=== PATIENT | female | born 1985 | race American Indian/Alaskan Native ===

== ENCOUNTER 2019-06-05 20:05 | Emergency (ER) | payer SELFPAY ==
--- NOTE | 2019-06-05 21:31 | Emergency Department Report ---
Blank Doc - Documentation Documentation: 33-year-old female that presents with midsternum chest pain and some SOB. Sta tia has headache but denies thunderclap headache or worst headache. Stated has chronic headaches. Denies any thunderclap headace. No facial drooping or one sided weakness. \ This initial assessment/diagnostic orders/clinical plan/treatment(s) is/are subject to change based on patient's health status, clinical progression and re- assessment by fellow clinical providers in the ED. Further treatment and workup at subsequent clinical providers discretion. Patient/guardians urged not to elope from the ED as their condition may be serious if not clinically assessed and managed. Initial orders include: 1- Patient sent to [facility] for further evaluation and treatment 2- EKG 3- CXR
[2019-06-05 22:37] LABS: Bilirubin,Urine NEG (Negative); Blood,Urine NEG (Negative); Color,Urine Yellow (Yellow); Mucus,Urine FEW /HPF; Protein,Urine <15 mg/dL mg/dL (Negative)
[2019-06-05 22:38] LABS: HCG Qualitative,Urine Negative (Negative)
--- NOTE | 2019-06-05 23:46 | XRay Report ---
CHEST 2 VIEWS INDICATION / CLINICAL INFORMATION: Chest pain. COMPARISON: None available. FINDINGS: SUPPORT DEVICES: None. HEART / MEDIASTINUM: No significant abnormality. LUNGS / PLEURA: No significant pulmonary or pleural abnormality. No pneumothorax. ADDITIONAL FINDINGS: No significant additional findings. IMPRESSION: 1. No acute findings. Signer Name: Alfredito Renee MD Signed: 06/05/2019 11:42 PM Workstation Name: [id number]
[2019-06-06] MEDS ORDERED: ASPIRIN EC 81 MG TAB PO ONE (00:08)
[2019-06-06 00:43] LABS: Basophils # (Auto) 0.1 K/mm3 (0.0-0.1); Basophils % (Auto) 0.7 % (0.0-1.8); Eosinophils # (Auto) 0.1 K/mm3 (0.0-0.4); Eosinophils % (Auto) 0.9 % (0.0-4.3); Hematocrit 34.4 % (30.3-42.9); Hemoglobin 11.6 gm/dl (10.1-14.3); Lymphocytes # (Auto) 2.5 K/mm3 (1.2-5.4); Mean Corpuscular HGB Conc 34 % (30-34); Mean Corpuscular Volume 85 fl (79-97); Monocytes # (Auto) 0.6 K/mm3 (0.0-0.8); Monocytes % (Auto) 6.6 % (0.0-7.3); Platelet Count 264 K/mm3 (140-440); Red Blood Count 4.03 M/mm3 (3.65-5.03); Red Cell Distribution Width 13.8 % (13.2-15.2)
[2019-06-06 01:23] LABS: Alanine Aminotransferase 28 units/L (7-56); Albumin 4.4 g/dL (3.9-5); BUN/Creatinine Ratio 14; Blood Urea Nitrogen 10 mg/dL (7-17); Calcium 9.4 mg/dL (8.4-10.2); Hemolysis Index 4
--- NOTE | 2019-06-06 02:01 | Emergency Department Report ---
ED Chest Pain HPI - General Chief Complaint: Chest Pain Stated Complaint: CP/SOB Time Seen by Provider: 06/05/19 21:30 Source: patient Mode of arrival: Ambulatory Limitations: No Limitations - History of Present Illness Initial Comments: Patient is a 33-year-old -Citizen Of [place] female with no past medical history who presents to the ED with a complaint of acute onset persistent constant substernal anterior chest wall pain for the last 7 hours. Patient states that the pain is constant and is worse with inhalation. Patient denies shortness of breath, easiness, fever, chills, cough, diaphoresis, neck pain, headache, palpitations, abdominal pain or nausea and vomiting or syncope. Patient states that she is on control. MD Complaint: chest pain -: Sudden, hour(s) (7) Onset: during rest, during exertion Pain Location: substernal Pain Radiation: none Severity: moderate Severity scale (0 -10): 5 Quality: aching, sharp Consistency: constant Improves With: nothing Worsens With: inspiration, palpation re: denies: nausea, vomting, diaphoresis, dyspnea, sense of impending doom, other Other Symptoms: denies: cough, fever, syncope, rash, acid taste in mouth, leg swelling, palpitations, burping Treatments Prior to Arrival: none Aspirin use within the Past 7 Days: (0) No - Related Data On Oral Contraceptives: Yes Previous Rx's Medication Instructions Recorded Last Taken Type Ibuprofen [Motrin] 600 mg PO Q8H PRN #24 tablet 06/06/19 Unknown Rx Sulfamethoxazole/Trimethoprim 1 each PO Q12H #20 tablet 06/06/19 Unknown Rx [Bactrim DS TAB] hydrOXYzine PAMOATE [Vistaril] 25 mg PO Q6HR PRN #30 capsule 06/06/19 Unknown Rx Allergies Allergy/AdvReac Type Severity Reaction Status Date / Time No Known Allergies Allergy Verified 06/06/19 00:13 Heart Score - HEART Score History: Slightly suspicious EKG: Normal Age: < 45 Risk factors: No known risk factors Troponin: < normal limit HEART Score: 0 - Critical Actions Critical Actions: 0-3 pts:0.9-1.7%risk of adverse cardiac event.Candidate for discharge ED Review of Systems ROS: Stated complaint: CP/SOB Other details as noted in HPI Comment: All other systems reviewed and negative Constitutional: no symptoms reported. denies: chills, diaphoresis, fever, malaise, weakness Eyes: denies: eye pain, eye discharge, vision change ENT: denies: ear pain, throat pain, dental pain, hearing loss, congestion Respiratory: denies: cough, orthopnea, shortness of breath, SOB with exertion, SOB at rest, wheezing Cardiovascular: chest pain (anterior substernal chest pain). denies: palpi tations, dyspnea on exertion, edema, syncope, paroxysmal nocturnal dyspnea Endocrine: no symptoms reported. denies: excessive sweating, flushing Gastrointestinal: denies: abdominal pain, nausea, vomiting, diarrhea Genitourinary: denies: urgency, dysuria, discharge Musculoskeletal: denies: back pain, joint swelling, arthralgia Skin: denies: rash, lesions Neurological: denies: headache, weakness, paresthesias Psychiatric: denies: anxiety, depression Hematological/Lymphatic: denies: easy bleeding, easy bruising ED Past Medical Hx - Past Medical History Previous Medical History?: No - Surgical History Additional Surgical History: c sect x2, cyst removal - Social History Smoking Status: Never Smoker Substance Use Type: None - Medications Home Medications: Home Medications Medication Instructions Recorded Confirmed Last Taken Type Ibuprofen [Motrin] 600 mg PO Q8H PRN #24 tablet 06/06/19 Unknown Rx Sulfamethoxazole/Trimethoprim 1 each PO Q12H #20 tablet 06/06/19 Unknown Rx [Bactrim DS TAB] hydrOXYzine PAMOATE [Vistaril] 25 mg PO Q6HR PRN #30 capsule 06/06/19 Unknown Rx ED Physical Exam - General Limitations: No Limitations General appearance: alert, in no apparent distress - Head Head exam: Present: atraumatic, normocephalic, normal inspection - Eye Eye exam: Present: normal appearance, PERRL, EOMI Pupils: Present: normal accommodation - ENT ENT exam: Present: normal exam, normal orophraynx, mucous membranes moist, TM's normal bilaterally, normal external ear exam - Neck Neck exam: Present: normal inspection, full ROM. Absent: tenderness, meningismus, lymphadenopathy, thyromegaly - Respiratory Respiratory exam: Present: normal lung sounds bilaterally, chest wall tenderness. Absent: respiratory distress, wheezes, rales, rhonchi, stridor, accessory muscle use - Cardiovascular Cardiovascular Exam: Present: regular rate, normal rhythm, normal heart sounds. Absent: systolic murmur, diastolic murmur, rubs, gallop - GI/Abdominal GI/Abdominal exam: Present: soft, normal bowel sounds. Absent: tenderness, guarding, rebound, hyperactive bowel sounds, organomegaly, mass - Extremities Exam Extremities exam: Present: normal inspection, full ROM, normal capillary refill - Back Exam Back exam: Present: normal inspection, full ROM. Absent: tenderness, muscle spasm, paraspinal tenderness, vertebral tenderness - Neurological Exam Neurological exam: Present: alert, oriented X3, CN II-XII intact, normal gait, reflexes normal - Psychiatric Psychiatric exam: Present: normal affect, normal mood - Skin Skin exam: Present: warm, dry, intact, normal color. Absent: rash ED Course Vital Signs 06/05/19 06/06/19 21:30 02:10 Temperature 97.4 F L 97.7 F Pulse Rate 79 73 Respiratory 19 18 Rate Blood Pressure 116/76 Blood Pressure 99/59 [Left] O2 Sat by Pulse 98 99 Oximetry MAMIE score - Mamie Score Age > 65: (0) No Aspirin use within the Past 7 Days: (0) No 3 or more CAD Risk Factors: (0) No 2 or more Angina events in past 24 hrs: (0) No Known CAD with more than 50% Stenosis: (0) No Elevated Cardiac Markers: (0) No ST Deviation Greater than 0.5mm: (0) No MAMIE Score: 0 ED Medical Decision Making - Lab Data Result diagrams: 06/06/19 00:33 06/06/19 00:33 - EKG Data Interpretation: normal EKG - Radiology Data Radiology results: report reviewed, image reviewed Chest x-ray shows no acute cardiopulmonary abnormalities or pneumonitis. - Medical Decision Making This is a 33-year-old AA female with no past medical history unknown cardiac risk factors who presented to the ED complaining of acute onset persistent substernal anterior chest wall pain for 7 hours. Patient is alert and oriented 3 and is not in distress with normal vital signs. Chest x-ray shows no acute cardiopulmonary abnormalities or pneumonitis. Lab test results including d- dimer level were reviewed and all nonactionable. The patient was treated in the ED with aspirin and on reevaluation, patient's pain is well-controlled medication. Patient's Heart score is 0 and the MAMIE score is also 0. Patient was discharged home with medications for pain and was advised to follow-up with her primary care physician in 7 to 10 days for reevaluation or return to the ED immediately if symptoms get worse. - Differential Diagnosis costochondritis; chest pain; ACS; GERD; Anxiety Critical care attestation.: If time is entered above; I have spent that time in minutes in the direct care of this critically ill patient, excluding procedure time. ED Disposition Clinical Impression: Pleuritic chest pain, Acute costochondritis, Anxiety as acute reaction to exceptional stress, Acute urinary tract infection Disposition: TO HOME OR SELFCARE Is pt being admited?: No Does the pt Need Aspirin: No Condition: Stable Instructions: Chest Pain (ED), Urinary Tract Infection in Women (ED), Costochondritis (ED) Additional Instructions: Take medications with food, drink plenty of fluids and follow-up with your primary care physician in 7-10 days for reevaluation. Return to the ED immediately if symptoms get worse. Prescriptions: Sulfamethoxazole/Trimethoprim [Bactrim DS TAB] 1 each PO Q12H #20 tablet Ibuprofen [Motrin] 600 mg PO Q8H PRN #24 tablet PRN Reason: Pain hydrOXYzine PAMOATE [Vistaril] 25 mg PO Q6HR PRN #30 capsule PRN Reason: Anxiety Referrals: [facility] [Outside] - 3-5 Days Forms: Work/School Release Form(ED) Time of Disposition: 01:58 Print Language: GRENADIAN
[2019-06-06] MEDS ORDERED: predniSONE 20 MG TAB PO ONE (02:07)
[2019-06-06] MEDS ORDERED: diphenhydrAMINE 25 MG CAP PO ONE (02:07)
[2019-06-06 02:11] VITALS: BP 99/59
== END 2019-06-06 02:29 | disposition home or self-care (01) ==
LOC: ED 20:05
DX: M94.0 Chondrocostal junction syndrome [Tietze] (principal); F41.9 Anxiety disorder, unspecified; N39.0 Urinary tract infection, site not specified; Z98.890 Other specified postprocedural states
CPT/HCPCS: 36415; 71046; 80053; 81001; 81025; 84484; 85025; 85379; 87086; 93005; 93010; 99284; J7512

== ENCOUNTER 2019-10-03 08:31 | Emergency (ER) | payer OTHER ==
[2019-10-03] MEDS ORDERED: IBUPROFEN 600 MG TAB PO ONE (10:04)
[2019-10-03 11:20] LABS: HCG Qualitative,Urine Negative (Negative)
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
== END 2019-10-03 12:25 | disposition home or self-care (01) ==
LOC: ED 08:31
DX: S39.012A Strain of muscle, fascia and tendon of lower back, initial encounter (principal); S29.012A Strain of muscle and tendon of back wall of thorax, initial encounter; Z98.890 Other specified postprocedural states; Z79.899 Other long term (current) drug therapy; V89.2XXA Person injured in unspecified motor-vehicle accident, traffic, initial encounter; Y93.89 Activity, other specified; Y92.488 Other paved roadways as the place of occurrence of the external cause; Y99.8 Other external cause status
CPT/HCPCS: 72070; 72100; 81025; 99284

== ENCOUNTER 2020-12-30 08:16 | Emergency (ER) | payer OTHER ==
--- NOTE | 2020-12-30 08:51 | Emergency Department Report ---
ED General Adult HPI - General Chief complaint: Abdominal Pain Stated complaint: ABD PAIN/BREAST PAIN PUI?: No Time Seen by Provider: 12/30/20 08:43 Source: patient Mode of arrival: Ambulatory Limitations: No Limitations - History of Present Illness Initial comments: Patient is a 35-year-old female that comes to the emergency room with a history of breast cyst. She is a patient of Dr. Jurado and has recently completed antibiotics for recurrent presumed mastitis of the right breast. Dr. Nuñez referred her for a mammogram but the center who referred her to does not accept her insurance. So the patient presents to the ER. I have explained to her the ER is do not do mammograms. Patient then added that she was having some suprapubic discomfort and thought she might be . This came about when I asked her her last menstrual cycle. Patient denies any vaginal discharge. She denies any abdominal pain. S he denies any back pain. No fever and chills. Patient ambulatory nontoxic and [id number] on arrival to [facility]. -: Gradual, week(s) Consistency: intermittent Improves with: none Worsens with: other Associated Symptoms: denies other symptoms Treatments Prior to Arrival: none - Related Data Previous Rx's Medication Instructions Recorded Last Taken Type cephALEXin [Keflex] 500 mg PO Q12HR #20 cap 12/30/20 Unknown Rx Allergies Allergy/AdvReac Type Severity Reaction Status Date / Time No Known Allergies Allergy Verified 06/06/19 00:13 ED Review of Systems ROS: Stated complaint: ABD PAIN/BREAST PAIN Other details as noted in HPI Comment: All other systems reviewed and negative ED Past Medical Hx - Past Medical History Previous Medical History?: Yes Additional medical history: Breast cyst - Surgical History Past Surgical History?: Yes Additional Surgical History: c sect x2, cyst removal - Family History Family history: no significant - Social History Smoking Status: Never Smoker Substance Use Type: None - Medications Home Medications: Home Medications Medication Instructions Recorded Confirmed Last Taken Type cephALEXin [Keflex] 500 mg PO Q12HR #20 cap 12/30/20 Unknown Rx ED Physical Exam - General Limitations: No Limitations General appearance: alert, in no apparent distress - Head Head exam: Present: atraumatic, normocephalic - Eye Eye exam: Present: normal appearance - ENT ENT exam: Present: mucous membranes moist - Neck Neck exam: Present: normal inspection - Respiratory Respiratory exam: Present: normal lung sounds bilaterally. Absent: respiratory distress - Cardiovascular Cardiovascular Exam: Present: regular rate, normal rhythm. Absent: systolic murmur, diastolic murmur, rubs, gallop - GI/Abdominal GI/Abdominal exam: Present: soft, normal bowel sounds - Extremities Exam Extremities exam: Present: normal inspection - Back Exam Back exam: Present: normal inspection - Neurological Exam Neurological exam: Present: alert, oriented X3 - Psychiatric Psychiatric exam: Present: normal affect, normal mood - Skin Skin exam: Present: warm, dry, intact, normal color. Absent: rash - Other Other exam information: Breast exam unremarkable ED Course Vital Signs 12/30/20 12/30/20 08:30 10:31 Temperature 97.8 F Pulse Rate 95 H 72 Respiratory 18 18 Rate Blood Pressure 109/62 107/57 [Right] O2 Sat by Pulse 97 99 Oximetry ED Medical Decision Making - Medical Decision Making Vital Signs 12/30/20 08:30 Temperature 97.8 F Pulse Rate 95 H Respiratory 18 Rate Blood Pressure 109/62 [Right] O2 Sat by Pulse 97 Oximetry Labs 12/30/20 09:19 Urine Color Yellow Urine Turbidity Hazy Urine pH 5.0 Ur Specific [place] 1.015 Urine Protein <15 mg/dl Urine Glucose (UA) Neg Urine Ketones Neg Urine Blood Neg Urine Nitrite Neg Ur Reducing Substances Not Reportable Urine Bilirubin Neg Urine Ictotest Not Reportable Urine Urobilinogen < 2.0 Ur Leukocyte Esterase Mod Urine WBC (Auto) 5.0 Urine RBC (Auto) 2.0 U Epithel Cells (Auto) 7.0 Urine Mucus Few Urine HCG, Qual Negative UA noted. Patient being discharged home on Keflex for her UTI. Patient is unable to tell me which antibiotic she was on for her breasts infection. She states that she completed it several days ago. I have encouraged patient to eat yogurt every day. negative I have given the patient the phone number for our breast center so that she can call them to see if they will accept her insurance. I have also advised her to call her insurance company to see who in fact would accept her own insurance and do a mammogram. I have also asked her to call Dr. Nuñez and update him on the situation with the mammogram. Patient is taking p.o. Her vital signs are stable. Patient being discharged home with discharge plan of care. Patient verbalizes understanding of the plan of care. - Differential Diagnosis RO PREG/UTI Critical care attestation.: If time is entered above; I have spent that time in minutes in the direct care of this critically ill patient, excluding procedure time. ED Disposition Clinical Impression: UTI (urinary tract infection) Disposition: TO HOME OR SELFCARE Is pt being admited?: No Does the pt Need Aspirin: No Condition: Stable Instructions: Urinary Tract Infection, Adult, Abdominal Pain (ED) Additional Instructions: FOLLOW UP WITH DR NUÑEZ LET HIM KNOW WE TREATED YOUR UTI FOLLOW UP FOR MAMOGRAM LIKE HE INSTRUCTED CALL YOUR INSURANCE FOR LOCATIONS THAT ACCEPT YOUR INSURANCE I'VE GIVEN YOU A REFERRAL TO OUR LOCAL MAMOGRAM- YOU CAN SEE IF THEY ACCEPT INSURANCE MOTRIN OR TYLENOL FOR PAIN Prescriptions: cephALEXin [Keflex] 500 mg PO Q12HR #20 cap Referrals: TRIXIE NUÑEZ MD [Staff Physician] - 3-5 Days Time of Disposition: 09:39
[2020-12-30 09:31] LABS: Bilirubin,Urine NEG (Negative); Blood,Urine NEG (Negative); Color,Urine Yellow (Yellow); HCG Qualitative,Urine Negative (Negative); Mucus,Urine FEW /HPF; Protein,Urine <15 mg/dL mg/dL (Negative); Urobilinogen,Urine < 2.0 mg/dL (<2.0)
[2020-12-30 10:32] VITALS: BP 107/57
== END 2020-12-30 11:00 | disposition home or self-care (01) ==
LOC: ED 08:16
DX: N39.0 Urinary tract infection, site not specified (principal); Z98.890 Other specified postprocedural states; Z79.899 Other long term (current) drug therapy
CPT/HCPCS: 81001; 81025

== ENCOUNTER 2021-05-28 15:31 | Emergency (ER) | payer OTHER ==
[2021-05-28] MEDS ORDERED: SODIUM CHLORIDE 0.9% 1000 ML 1,000 ML IV ONE (15:52)
--- NOTE | 2021-05-28 15:54 | Event Note ---
ED Screening Note ED Screening Note: Patient presents for lightheadedness that began this morning She states that whenever she stands up she feels like she wants to pass out She also has headache and shortness of breath She was diagnosed with breast cancer 2 weeks ago which she reports is stage 0 She has not had any chemotherapy She reports that she is having a mastectomy in June She denies any chest pain, fever, cough, vomiting, diarrhea Allergy Aspirin Non-smoker This initial assessment/diagnostic orders/clinical plan/treatment(s) is/are subject to change based on patients health status, clinical progression and re- assessment by fellow clinical providers in the ED. Further treatment and workup at subsequent clinical providers discretion. Patient/guardian urged not to elope from the ED as their condition may be serious if not clinically assessed and managed. Initial orders include: Labs, urine, x-ray, EKG
--- NOTE | 2021-05-28 17:02 | Emergency Department Report ---
ED General Adult HPI - General Chief complaint: Dizziness Stated complaint: blood pressure Time Seen by Provider: 05/28/21 15:45 Source: patient Mode of arrival: Ambulatory Limitations: No Limitations - History of Present Illness Initial comments: Patient presents with multiple vague symptoms. She feels lightheaded and dizzy. This started today. It seems to be worse upon standing. She has not noticed it when she moves her head. She has not noticed it when she lies down. She states that she occasionally feels short of breath. She will state that she feels like she has to breathe with her mouth open. She was not gasping for air. This is also been more when she is upright. It does not occur when she is supine or resting. She has had no significant cough or fever. There is no congestion. Patient denies chest pain or trauma. There has been no swelling in the feet or ankles. She also reports that she just does not feel good. She de cided she needed to be seen because of the symptoms today and came here. - Related Data Previous Rx's Medication Instructions Recorded Last Taken Type cephALEXin [Keflex] 500 mg PO Q12HR #20 cap 12/30/20 Unknown Rx Allergies Allergy/AdvReac Type Severity Reaction Status Date / Time aspirin Allergy Itching Verified 05/28/21 15:36 ED Review of Systems ROS: Stated complaint: blood pressure Other details as noted in HPI Comment: All other systems reviewed and negative Constitutional: denies: fever Eyes: denies: vision change ENT: denies: throat pain Respiratory: denies: cough Cardiovascular: denies: chest pain Endocrine: denies: unexplained weight loss Gastrointestinal: denies: abdominal pain Musculoskeletal: denies: back pain Skin: denies: rash Neurological: as per HPI Hematological/Lymphatic: denies: easy bruising ED Past Medical Hx - Past Medical History Previous Medical History?: No Hx of Cancer: Yes (Breast) Additional medical history: Breast cyst - Surgical History Additional Surgical History: c sect x2, cyst removal/ TONSILS - Family History Family history: no significant - Social History Smoking Status: Never Smoker Substance Use Type: None - Medications Home Medications: Home Medications Medication Instructions Recorded Confirmed Last Taken Type cephALEXin [Keflex] 500 mg PO Q12HR #20 cap 12/30/20 Unknown Rx ED Physical Exam - General Limitations: No Limitations, Other (Pulse ox noted and normal) General appearance: alert, in no apparent distress - Head Head exam: Present: atraumatic, normocephalic, normal inspection - Eye Eye exam: Present: normal appearance, EOMI. Absent: scleral icterus - ENT ENT exam: Present: normal exam, normal orophraynx, mucous membranes moist, normal external ear exam - Neck Neck exam: Present: normal inspection. Absent: meningismus - Respiratory Respiratory exam: Present: normal lung sounds bilaterally. Absent: respiratory distress - Cardiovascular Cardiovascular Exam: Present: regular rate, normal rhythm - GI/Abdominal GI/Abdominal exam: Present: soft. Absent: distended, tenderness - Extremities Exam Extremities exam: Present: normal capillary refill. Absent: calf tenderness - Back Exam Back exam: Absent: CVA tenderness (R), CVA tenderness (L) - Neurological Exam Neurological exam: Present: alert, oriented X3, CN II-XII intact, normal gait, reflexes normal, other (NIH score is 0. There is no pronator drift or dysdiadochokinesia.). Absent: motor sensory deficit - Psychiatric Psychiatric exam: Present: normal affect, normal mood - Skin Skin exam: Present: warm, dry ED Course Vital Signs 05/28/21 15:38 Temperature 98.0 F Pulse Rate 79 Respiratory 18 Rate Blood Pressure 105/55 O2 Sat by Pulse 96 Oximetry - Reevaluation(s) Reevaluation #1: 05/28/21 17:02 IV and labs have been ordered. Old records reviewed. Reevaluation #2: 05/28/21 18:16 Labs have been reviewed. Patient states that she feels well and like to go home. She does not want IV fluids. She states that orthostatics were completed although these have not been charted. ED Medical Decision Making - Lab Data Result diagrams: 05/28/21 16:27 05/28/21 16:27 Rhythm strip: Normal sinus rhythm without ectopy per monitor observe 10 seconds. - Medical Decision Making Patient present with multiple complaints. Etiology for these complaints is not known. We do not see orthostatics documented, but the patient clinically did not seem to be ataxic when she was standing. We discussed IV fluids which she declined. Regardless, patient does not have any obvious metabolic derangement. She is not anemic. There is no focal neurologic deficit. There does not appear to be any evidence of intracranial pathology. She does not have a focal neurologic finding. NIH score was 0. There is no obvious infectious pathology. There does not appear to be any dysrhythmia. Patient was discharged and instructed to follow-up with her regular doctor. Critical Care Time: No Critical care attestation.: If time is entered above; I have spent that time in minutes in the direct care of this critically ill patient, excluding procedure time. ED Disposition Clinical Impression: Lightheaded Headache Qualifiers: Headache type: unspecified Headache chronicity pattern: acute headache Intractability: not intractable Qualified Code(s): R51.9 - Headache, unspecified Disposition: 01 HOME / SELF CARE / HOMELESS Is pt being admited?: No Condition: Stable Instructions: Dizziness Additional Instructions: Drink plenty water. Return for problems. Follow-up with your regular doctor for recheck. If you do not have a regular doctor, follow-up with the referral physician. Referrals: ROYER ZHANG MD [Primary Care Provider] - 3-5 Days GUY LOW MD [Staff Physician] - 3-5 Days
[2021-05-28 17:28] LABS: Basophils # (Auto) 0.1 K/mm3 (0.0-0.1); Eosinophils # (Auto) 0.1 K/mm3 (0.0-0.4); Eosinophils % (Auto) 2.1 % (0.0-4.3); Hematocrit 39.8 % (30.3-42.9); Hemoglobin 12.5 gm/dl (10.1-14.3); Lymphocytes # (Auto) 2.6 K/mm3 (1.2-5.4); Lymphocytes % (Auto) 43.2 % (13.4-35.0); Mean Corpuscular HGB Conc 31 % (30-34); Mean Corpuscular Volume 86 fl (79-97); Monocytes # (Auto) 0.5 K/mm3 (0.0-0.8); Monocytes % (Auto) 8.6 % (0.0-7.3); Platelet Count 295 K/mm3 (140-440); Red Blood Count 4.65 M/mm3 (3.65-5.03); Red Cell Distribution Width 13.9 % (13.2-15.2)
[2021-05-28 17:43] LABS: Alanine Aminotransferase 16 units/L (7-56); Albumin 4.6 g/dL (3.9-5); BUN/Creatinine Ratio 11; Blood Urea Nitrogen 9 mg/dL (7-17); Calcium 9.8 mg/dL (8.4-10.2); Hemolysis Index 1
--- NOTE | 2021-05-28 18:01 | XRay Report ---
CHEST 2 VIEWS INDICATION / CLINICAL INFORMATION: Shortness of breath. COMPARISON: None available. FINDINGS: SUPPORT DEVICES: None. HEART / MEDIASTINUM: The heart size and pulmonary vasculature are normal. LUNGS / PLEURA: No significant pulmonary or pleural abnormality. No pneumothorax. ADDITIONAL FINDINGS: No significant additional findings. IMPRESSION: No acute abnormality. Signer Name: Jaime Gtz MD Signed: 05/28/2021 5:56 PM Workstation Name: [id number]
[2021-05-28 18:32] VITALS: BP 112/70
--- NOTE | 2021-05-31 18:51 | Electrocardiograph Report ---
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
== END 2021-05-28 18:32 | disposition home or self-care (01) ==
LOC: ED 15:31
DX: R42 Dizziness and giddiness (principal); R51.9 Headache, unspecified; Z98.890 Other specified postprocedural states; Z88.6 Allergy status to analgesic agent; Z79.899 Other long term (current) drug therapy
CPT/HCPCS: 36415; 71046; 80053; 82550; 83735; 83880; 84484; 84703; 85025; 93005; 99283; J7030

== ENCOUNTER 2021-06-13 00:53 | Emergency (ER) | payer OTHER ==
[2021-06-13 01:20] VITALS: BP 112/66
[2021-06-13] MEDS ORDERED: HYDROGEN PEROXIDE 118 ML SOLUTION TP ONE (01:55)
[2021-06-13] MEDS ORDERED: LIDOCAINE (2%) 20 MG/1 ML VIAL 20 ML MDV INFILTRATI STA (01:55)
--- NOTE | 2021-06-13 02:09 | Emergency Department Report ---
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 No drainage from the wound no fever chills sweats. No nausea no vomiting, no numbness. -: Gradual Location: upper extremity (Third digit) Radiation: non-radiation Quality: aching, dull Consistency: constant Improves with: none Worsens with: movement Associated Symptoms: denies other symptoms. denies: confusion, chest pain, cou gh, diaphoresis, malaise, nausea/vomiting, shortness of breath, syncope, weakness - Related Data Previous Rx's Medication Instructions Recorded Last Taken Type cephALEXin [Keflex] 500 mg PO Q12HR #20 cap 12/30/20 Unknown Rx Sulfamethoxazole/Trimethoprim 1 each PO BID #20 tablet 06/13/21 Unknown Rx [Bactrim DS TAB] cephALEXin [Keflex] 500 mg PO Q8HR #30 cap 06/13/21 Unknown Rx Allergies Allergy/AdvReac Type Severity Reaction Status Date / Time aspirin Allergy Itching Verified 05/28/21 15:36 ED Review of Systems ROS: Stated complaint: LT FINGER PAIN Other details as noted in HPI Comment: All other systems reviewed and negative ED Past Medical Hx - Past Medical History Previous Medical History?: No Additional medical history: Breast cyst - Surgical History Past Surgical History?: No Additional Surgical History: c sect x2, cyst removal/ TONSILS - Social History Smoking Status: Never Smoker Substance Use Type: None - Medications Home Medications: Home Medications Medication Instructions Recorded Confirmed Last Taken Type cephALEXin [Keflex] 500 mg PO Q12HR #20 cap 12/30/20 Unknown Rx Sulfamethoxazole/Trimethoprim 1 each PO BID #20 tablet 06/13/21 Unknown Rx [Bactrim DS TAB] cephALEXin [Keflex] 500 mg PO Q8HR #30 cap 06/13/21 Unknown Rx ED Physical Exam - General Limitations: No Limitations General appearance: alert, in no apparent distress - Head Head exam: Present: atraumatic, normocephalic - Eye Eye exam: Present: normal appearance - ENT ENT exam: Present: mucous membranes moist - Neck Neck exam: Present: normal inspection - Respiratory Respiratory exam: Present: normal lung sounds bilaterally. Absent: respiratory distress - Cardiovascular Cardiovascular Exam: Present: regular rate, normal rhythm. Absent: systolic murmur, diastolic murmur, rubs, gallop - GI/Abdominal GI/Abdominal exam: Present: soft, normal bowel sounds - Extremities Exam Extremities exam: Present: normal inspection, other (Paronychia to the left hand third digit with global swelling to the distal phalanges. No subungual hematoma capillary refill brisk. no Kanavel sign) - Back Exam Back exam: Present: normal inspection - Neurological Exam Neurological exam: Present: alert, oriented X3 - Psychiatric Psychiatric exam: Present: normal affect, normal mood - Skin Skin exam: Present: warm, dry, intact, normal color. Absent: rash ED Course Vital Signs 06/13/21 01:18 Temperature 98.2 F Pulse Rate 70 Respiratory 16 Rate Blood Pressure 112/66 [Left] O2 Sat by Pulse 99 Oximetry - Procedure Description Procedures done: PRE-OP DIAGNOSIS: Paronychia. POST-OP DIAGNOSIS: Same. PROCEDURE: incision and drainage of abscess. Performing Physician/advanced practice provider: Toñito Kearney_. . PROCEDURE: A timeout protocol was performed prior to initiating the procedure. The area was prepared and draped in the usual, sterile manner. The site was attempted to be anesthetized with 2% lidocaine without epinephrine. On the patient had a change her and opted to forego the procedure and try her changes on just oral antibiotics. Urged patient on incision and drainage being the optimal option but she declined. Packing: None. ED Medical Decision Making - Medical Decision Making Attempted incision and drainage of paronychia but patient ultimately declined the procedure she did understand the risk associated with complaining this procedure once he tried to oral antibiotics only to eradicate the infection Critical care attestation.: If time is entered above; I have spent that time in minutes in the direct care of this critically ill patient, excluding procedure time. ED Disposition Clinical Impression: Paronychia Disposition: HOME / SELF CARE / HOMELESS Is pt being admited?: No Does the pt Need Aspirin: No Condition: Stable Instructions: Paronychia, Fingertip Infection Additional Instructions: Please be sure to follow-up with To evaluate the progression of improvement on your paronychia. Incision and drainage was recommended but declined and may still be needed in the future Prescriptions: Sulfamethoxazole/Trimethoprim [Bactrim DS TAB] 1 each PO BID #20 tablet cephALEXin [Keflex] 500 mg PO Q8HR #30 cap Referrals: [facility] [Provider Group] - 3-5 Days
[2021-06-13] MEDS ORDERED: HYDROcodone/ACETAMINOPHEN 5-325 MG TAB PO STA (02:14)
== END 2021-06-13 02:40 | disposition home or self-care (01) ==
LOC: ED 00:53
DX: L03.012 Cellulitis of left finger (principal); Z98.890 Other specified postprocedural states; Z88.6 Allergy status to analgesic agent; Z79.899 Other long term (current) drug therapy
CPT/HCPCS: 99282; J3490

== ENCOUNTER 2021-06-13 19:50 | Emergency (ER) | payer OTHER ==
[2021-06-13] MEDS ORDERED: HYDROcodone/ACETAMINOPHEN 7.5-325MG TAB PO ONE (20:38)
[2021-06-13] MEDS ORDERED: LIDOCAINE-MPF (1%) 10 MG/1 ML VIAL 5 ML INFILTRATI ONE (20:38)
[2021-06-13] MEDS ORDERED: ONDANSETRON 4 MG ODT TAB PO ONE (20:38)
--- NOTE | 2021-06-13 21:56 | Emergency Department Report ---
ED Extremity Problem HPI - General Chief complaint: Extremity Injury, Upper Stated complaint: FINGER INJURY Source: patient Mode of arrival: Ambulatory Limitations: No Limitations - History of Present Illness Initial comments: Patient is a 35-year-old -[place] female with no past medical history who presents to the ED with complaint of acute onset persistent painful swollen distal left middle finger due to erythematous maculopapular rash for the last for 3 days after biting her distal left middle finger. Patient states that the pain is constant, throbbing and persistent and that she has not been able to sleep because of worsening pain. Patient states that she is currently taking oral antibiotics that were prescribed 24 hours ago in this ED. Patient denies fever, chills, nausea and vomiting, numbness and tingling or weakness of left hand, traumatic injury, chest pain or shortness of breath. MD Complaint: extremity pain (distal painful left middle finger swollen erythematous rash), extremity swelling (distal left middle finger swelling and pain ) -: Sudden, days(s) (3) Location: left (distal middle finger pain, swelling) History of Same: No -: Yes arthralgia (Distal left middle finger pain), No fever, No associated dyspnea, No associated chest pain Radiation: distal Severity scale (0 -10): 8 Quality: aching, sharp Consistency: constant Improves with: nothing Worsens with: weight bearing, palpation Associated Symptoms: denies other symptoms, rash (Swollen, erythematous maculopapular painful rash on distal left middle finger). denies: chest pain, shortness of breath, fever, myalgias - Related Data Previous Rx's Medication Instructions Recorded Last Taken Type cephALEXin [Keflex] 500 mg PO Q12HR #20 cap 12/30/20 Unknown Rx Acetaminophen/Codeine [Tylenol 1 tab PO Q6H PRN #12 tab 06/13/21 Unknown Rx /Codeine # 3 tab] Sulfamethoxazole/Trimethoprim 1 each PO BID #20 tablet 06/13/21 Unknown Rx [Bactrim DS TAB] cephALEXin [Keflex] 500 mg PO Q8HR #30 cap 06/13/21 Unknown Rx Allergies Allergy/AdvReac Type Severity Reaction Status Date / Time aspirin Allergy Itching Verified 05/28/21 15:36 ED Review of Systems ROS: Stated complaint: FINGER INJURY Other details as noted in HPI Constitutional: denies: chills, fever Eyes: denies: eye pain, eye discharge, vision change ENT: denies: ear pain, throat pain Respiratory: denies: cough, shortness of breath, wheezing Cardiovascular: denies: chest pain, palpitations Endocrine: no symptoms reported Gastrointestinal: denies: abdominal pain, nausea, diarrhea Genitourinary: denies: urgency, dysuria, discharge Musculoskeletal: joint swelling (Mildly swollen distal left middle finger due to erythematous maculopapular rash), arthralgia (Distal left middle finger pain due to erythematous maculopapular rash). denies: back pain Skin: rash (Swelling, painful, erythematous maculopapular rash on distal left mi ddle finger), change in color. denies: lesions Neurological: denies: headache, weakness, paresthesias Psychiatric: denies: anxiety, depression Hematological/Lymphatic: denies: easy bleeding, easy bruising ED Past Medical Hx - Past Medical History Previous Medical History?: No Additional medical history: Breast cyst - Surgical History Past Surgical History?: Yes Additional Surgical History: c sect x2, cyst removal/ TONSILS - Social History Smoking Status: Never Smoker Substance Use Type: None - Medications Home Medications: Home Medications Medication Instructions Recorded Confirmed Last Taken Type cephALEXin [Keflex] 500 mg PO Q12HR #20 cap 12/30/20 Unknown Rx Acetaminophen/Codeine [Tylenol 1 tab PO Q6H PRN #12 tab 06/13/21 Unknown Rx /Codeine # 3 tab] Sulfamethoxazole/Trimethoprim 1 each PO BID #20 tablet 06/13/21 Unknown Rx [Bactrim DS TAB] cephALEXin [Keflex] 500 mg PO Q8HR #30 cap 06/13/21 Unknown Rx ED Physical Exam - General Limitations: No Limitations General appearance: alert, in no apparent distress - Head Head exam: Present: atraumatic, normocephalic, normal inspection - Eye Eye exam: Present: normal appearance, PERRL, EOMI Pupils: Present: normal accommodation - ENT ENT exam: Present: normal exam, normal orophraynx, mucous membranes moist, TM's normal bilaterally, normal external ear exam - Neck Neck exam: Present: normal inspection, full ROM - Respiratory Respiratory exam: Present: normal lung sounds bilaterally. Absent: respiratory distress, wheezes, rhonchi, stridor, chest wall tenderness, accessory muscle use, decreased breath sounds, prolonged expiratory - Cardiovascular Cardiovascular Exam: Present: regular rate, normal rhythm, normal heart sounds. Absent: systolic murmur, diastolic murmur, rubs, gallop - GI/Abdominal GI/Abdominal exam: Present: soft, normal bowel sounds. Absent: tenderness, guarding, rebound, hyperactive bowel sounds, hypoactive bowel sounds, organomegaly, mass, bruit - Extremities Exam Extremities exam: Present: full ROM, tenderness (Palpable severe tenderness of distal left middle finger due to erythematous maculopapular fluctuant rash), normal capillary refill, joint swelling (Distal left middle finger swelling due to erythematous maculopapular fluctuant rash) - Back Exam Back exam: Present: normal inspection, full ROM. Absent: tenderness, CVA tenderness (R), CVA tenderness (L), muscle spasm, paraspinal tenderness, vertebral tenderness - Neurological Exam Neurological exam: Present: alert, oriented X3, CN II-XII intact, normal gait, reflexes normal - Psychiatric Psychiatric exam: Present: normal affect, normal mood, anxious - Skin Skin exam: Present: warm, dry, intact, normal color. Absent: rash ED Course Vital Signs 06/13/21 19:55 Temperature 98.4 F Pulse Rate 87 Respiratory 21 Rate Blood Pressure 118/79 [Right] O2 Sat by Pulse 98 Oximetry ED Medical Decision Making - Medical Decision Making This is a 35-year-old -[place] female with no past medical history who presents to the ED with complaint of acute onset persistent painful swollen distal left middle finger due to erythematous maculopapular rash for the last for 3 days after biting her distal left middle finger. Patient states that the pain is constant, throbbing and persistent and that she has not been able to sleep because of worsening pain. Patient states that she is currently taking oral antibiotics that were prescribed 24 hours ago in this ED. In the ED, patient is alert and oriented x3 and is not in any distress. Patient however a ppears to be in significant pain. Patient was treated for pain in the ED since the patient already is on oral antibiotics. The distal left middle finger swollen abscess rash was incised and drained per protocol. The middle finger was digitally blocked with lidocaine 1% solution. When anesthesia was fully achieved, the distal left middle finger fluctuant section was incised with a #11 scalpel blade. Patient tolerated the procedure moderately well. The wound was then cleaned extensively and debrided with normal saline. The wound was then dressed appropriately and the patient was discharged home and advised to continue taking the previously prescribed antibiotics and pain medications and to follow-up with her primary care physician in 7 to 10 days for reevaluation. Patient was advised return to the ED immediately if symptoms get worse. - Differential Diagnosis Cellulitis; paronychia; finger abscess Critical care attestation.: If time is entered above; I have spent that time in minutes in the direct care of this critically ill patient, excluding procedure time. ED Disposition Clinical Impression: Cellulitis of left middle finger, Paronychia of left middle finger Disposition: HOME / SELF CARE / HOMELESS Is pt being admited?: No Does the pt Need Aspirin: No Condition: Stable Instructions: Cellulitis, Adult, [id number], Paronychia, [id number] Additional Instructions: Continue taking the previously prescribed antibiotics and pain medications. Return to the ED immediately if symptoms get worse. Otherwise follow-up with your primary care physician in 7 to 10 days for reevaluation. Prescriptions: Acetaminophen/Codeine [Tylenol /Codeine # 3 tab] 1 tab PO Q6H PRN #12 tab PRN Reason: SEVERE PAIN Referrals: [facility] [Provider Group] - 7-10 days Time of Disposition: 21:59 Print Language: MICRONESIAN
[2021-06-13 22:36] VITALS: BP 106/64
== END 2021-06-13 22:59 | disposition home or self-care (01) ==
LOC: ED 19:50
DX: L03.012 Cellulitis of left finger (principal); Z88.6 Allergy status to analgesic agent; Z98.890 Other specified postprocedural states; Z79.899 Other long term (current) drug therapy
CPT/HCPCS: 10060; 99282; J3490; Q0162